=== PATIENT | male | born 1945 | race Caucasian/White ===

== ENCOUNTER 2017-06-08 10:56 | Day surgery (SDC) | payer OTHER, BC ==
[2017-06-07 11:20] VITALS: BMI 24.4
[2017-06-08] MEDS ORDERED: MIDAZOLAM HCL 2 MG/2 ML SINGLE DOSE VIAL ONE (13:26)
[2017-06-08] MEDS ORDERED: DEXAMETHASONE SOD PHOSPHATE 4 MG/1 ML VIAL ONE (13:33)
[2017-06-08] MEDS ORDERED: ONDANSETRON 4 MG/2 ML VIAL ONE (13:33)
[2017-06-08] MEDS ORDERED: PROPOFOL 20 ML ONE ×2 (13:33)
[2017-06-08] MEDS ORDERED: LIDOCAINE HCL/PF 2% SDV 5ML VIAL ONE (13:33)
[2017-06-08] MEDS ORDERED: ceFAZolin SODIUM 1 GM VIAL ONE (13:46)
[2017-06-08 15:15] VITALS: BP 118/65; PULSE 66; TEMP 98
--- NOTE | 2017-06-10 16:49 | OP ---
DATE OF OPERATION: 06/08/2017 PREOPERATIVE DIAGNOSIS: Right ring trigger finger. POSTOPERATIVE DIAGNOSES: Right ring trigger finger. OPERATIVE PROCEDURE: Right ring trigger finger release. SURGEON: Jordan Barnhart MD [employer]INE OPERATOR: JESUS Angeles ANESTHESIA: Local with sedation. COMPLICATIONS: None. ESTIMATED BLOOD LOSS: Minimal. INDICATION FOR PROCEDURE: The patient is a 71-year-old male with the above finding, indicated for operative treatment. The risks, benefits and alternatives were discussed with the patient at length and proper informed consent was obtained. DESCRIPTION OF PROCEDURE: After proper identification of the patient and the correct operative site, the patient was brought to the operating room and placed supine on the operating table with all prominences well padded. Sedation was given by the anesthesiologist and was adequate for the procedure. The right upper extremity was prepped and draped in the usual sterile fashion. A well-padded tourniquet was placed after sterile prep. An Esmarch bandage was used to exsanguinate the right upper extremity and the tourniquet was inflated to 250 mmHg. A longitudinal incision was made over the A1 linda of the right ring finger. The incision was taken sharply through the skin with blunt and sharp dissection through the subcutaneous tissues. The A1 linda was identified and divided longitudinally. The patient was asked to flex and extend his finger and no further triggering was noted. The wound was repaired with a 5-0 nylon suture. Sterile dressing was applied. The patient was brought to the recovery room in stable condition. He tolerated the procedure well. Liz [id number]
== END 2017-06-08 15:24 | disposition home or self-care (01) ==
LOC: FASU 10:56
PROVIDERS: ATTEND Orthopaedic Surgery Hand Surgery
PROC: 0LN70ZZ Release Right Hand Tendon, Open Approach (ICD-10-PCS; principal; 2017-06-08 13:00)
DX: M65.341 Trigger finger, right ring finger (principal)